=== PATIENT | male | born 1985 ===

== ENCOUNTER 2024-12-15 18:31 | Emergency (ER) | payer SELFPAY ==
[~2024-12-15] VITALS: Ht 182.9 cm; Wt 75.0 kg
[2024-12-15 19:57] VITALS: BP 143/78; TEMP 98.1
[2024-12-15] MEDS: ACETAMINOPHEN 500 MG TABLET PO ONE (20:22)
[2024-12-15 20:39] VITALS: PULSE 73; RESP 18; O2SAT 97
== END 2024-12-15 20:40 ==
LOC: EMS 18:31
DX: S39.012A Strain of muscle, fascia and tendon of lower back, initial encounter (principal); Z65.3 Problems related to other legal circumstances; X58.XXXA Exposure to other specified factors, initial encounter; Y93.89 Activity, other specified; Y92.89 Other specified places as the place of occurrence of the external cause; Y99.8 Other external cause status
CPT/HCPCS: 99283